=== PATIENT | female | born 1990 | race Caucasian/White ===

== ENCOUNTER → 2016-07-10 | Outpatient (CLI) | payer MEDICAID ==
[~2016-07-10] MED LIST: CODE-54 PO; HYDR-3454 PO; PREN1TAB71 PO; SERT50TA9
--- OUTSIDE RECORDS SUMMARY | 2016-07-10 14:33 | XMS REPORT | Continuity of Care Document ---
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 12/20/2015 BETZY LOAIZA MD Ot L98.9 DISORDER OF THE SKIN AND SUBCUTANEOUS TI 12/24/2015 BETZY LOAIZA MD Ot 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 Visit Date/Time Discharge Status Pt. Type Provider Facility Loc./Unit Complaint [id number] 12/20/2015 08:37:00 2015 12:55:00 DIS Outpatient BETZY LOAIZA MD [facility] SKIN LESION BACK OF SCALP [id number] 12/17/2015 05:35:00 2015 09:42:00 DIS Outpatient BETZY LOAIZA MD [facility] PREOP [id number] 01/31/2014 18:48:00 2013 10:45:00 DIS Inpatient [id number] 09/27/2013 11:41:00 2013 23:59:59 CLS Outpatient [id number] 08/01/2013 09:44:00 2013 23:59:59 CLS Outpatient
== END ==
LOC: CARD 14:30
PROVIDERS: ATTEND Family Medicine
DX: R00.0 Tachycardia, unspecified (principal)
CPT/HCPCS: 93005

== ENCOUNTER 2016-08-22 01:28 | Emergency (ER) | payer MEDICAID ==
[~2016-08-22] VITALS: Ht 162.6 cm; Wt 81.6 kg
[~2016-08-22 01:28] MED LIST changes: -SERT50TA9
[2016-08-22] MEDS ORDERED: SERT50TA9 (01:40)
--- NOTE | 2016-08-22 02:53 | ED Cardiac General ---
History of Present Illness General Chief Complaint: Cardiac/General Problems Stated Complaint: HTN,CHEST FELT TIGHT,DIZZY,SOB Nursing Triage Note: c/o anxiety and chest palpitations Source: patient Exam Limitations: no limitations History of Present Illness Time seen by provider: 02:39 Initial Comments This 26-year-old young lady presents to the emergency room with complaints of palpitations. She was out drinking alcohol with friends this evening when she began to feel tightness in her chest radiating to her back along with palpitations and lightheadedness. She reports a friend checked a manual blood pressure at home and found her blood pressure to be 166/102. She reports her pulse was 126. She reports having some issues with palpitations and hypertension for the past 6 months. Episodes in the past have brief. She reports her symptoms tonight have been gradually improving and she feels fairly well right now. She denies any use of stimulants. She denies any tobacco or drug use. She is alert and oriented and does not appear intoxicated at this time. She reports being on amoxicillin for an ear infection which she started last night. She had some swelling and itching associated with the amoxicillin use. She took Benadryl which resolved the issue. Her antibiotic was changed to a different medication which she has not started. She also was recently started on Zoloft on . Allergies and Home Medications Allergies Coded Allergies: amoxicillin (Verified Allergy, Unknown, 08/22/16) Home Medications Sertraline HCl 50 Mg Tablet, #30 (Reported) Review of Systems Constitutional: no symptoms reported EENTM: No Symptoms Reported Respiratory: No Symptoms Reported Cardiovascular: See HPI Gastrointestinal: No Symptoms Reported Genitourinary: No Symptoms Reported Musculoskeletal: no symptoms reported Skin: see HPI Psychiatric/Neurological: No Symptoms Reported Endocrine: No Symptoms Reported Past Lvfmxxp-Sqdytc-Bmavrc Hx Patient Social History Alcohol Use: Occasionally Uses Recreational Drug Use: No Smoking Status: Never a Smoker Recent Foreign Travel: No Contact w/Someone Who Travel: No Recent Infectious Disease Expo: No Recent Hopitalizations: No Immunizations Up To Date Tetanus Booster (TDap): More than 5yrs PED Vaccines UTD: No Surgeries HX Surgeries: Yes (WISDOM TEETH - 2009, TONSILLECTOMY AT AGE 3, sebaceous cyst resection) Surgeries: Adenoidectomy, Tonsillectomy Respiratory Hx Respiratory Disorders: No Cardiovascular Hx Cardiac Disorders: Yes Cardiac Disorders: Hypertension, Palpitations Neurological Hx Neurological Disorders: No Reproductive System Hx Reproductive Disorders: No Sexually Transmitted Disease: No HIV/AIDS: No Female Reproductive Disorders: Denies Genitourinary Hx Genitourinary Disorders: No Gastrointestinal Hx Gastrointestinal Disorders: No Musculoskeletal Hx Musculoskeletal Disorders: No Endocrine Hx Endocrine Disorders: No HEENT HX ENT Disorders: Yes (GLASSES) Loss of Vision: Bilateral Hearing Impairment: Denies Cancer Hx Cancer: No Psychosocial Hx Psychiatric Problems: No Integumentary HX Skin/Integumentary Disorder: No Blood Transfusions Hx Blood Disorders: No Adverse Reaction to a Blood Tr: No (N/A) Family Medical History Significant Family History: Heart Disease, Diabetes, Hypertension Family Medial History: Diabetes mellitus GRANDMOTHER Hypertension 19 FATHER GRANDMOTHER Physical Exam Vital Signs Vital Sign - Last 12Hours 08/22/16 01:36 Temp 98.2 Pulse 101 Resp 18 B/P (MAP) 142/98 Pulse Ox 98 O2 Delivery Room Air Capillary Refill : Less Than 3 Seconds General Appearance: No Apparent Distress, WD/WN HEENT: PERRL/EOMI, Normal ENT Inspection, Pharynx Normal Neck: Normal Inspection Respiratory: Lungs Clear, Normal Breath Sounds, No Accessory Muscle Use, No Respiratory Distress Cardiovascular: Regular Rate, Rhythm, No Edema, No Murmur, Normal Peripheral Pulses Gastrointestinal: Non Tender, Soft Extremity: Normal Inspection, No Pedal Edema Neurologic/Psychiatric: Alert, Oriented x3, No Motor/Sensory Deficits, Normal Mood/Affect, c t tech II-XII Norm as Tested Skin: Normal Color, Warm/Dry Progress/Results/Core Measures Results/Orders My Orders Orders - LAURA MASTON MD Monitor-Rhythm Ecg Trace Only (08/22/16 02:50) Vital Signs/I&O Vital Sign - Last 12Hours 08/22/16 08/22/16 01:36 03:07 Temp 98.2 98.2 Pulse 101 94 Resp 18 18 B/P (MAP) 142/98 Pulse Ox 98 98 O2 Delivery Room Air Blood Pressure Mean: 113 Progress Note : Progress Note Patient had normal sinus rhythm on the monitor. Blood pressure was improving. Patient's symptoms were resolving without any treatment. She elects to forego workup and seek further evaluation as an outpatient. Departure Impression Impression: Primary Impression: Palpitations Additional Impression: Episode of hypertension Disposition: 01 HOME, SELF-CARE Condition: Improved Departure-Patient Inst. Decision time for Depature: 02:51 Referrals: LUIS DANIEL ANDERSON MD (PCP/Family) Primary Care Physician Patient Instructions: Palpitations (DC) Add. Discharge Instructions: Return to care promptly if symptoms return. Follow-up with Dr. Anderson on Wednesday. Discontinue use of Zoloft and avoid alcohol until discussed at your follow-up appointment. All discharge instructions reviewed with patient and/or family. Voiced understanding. Copy Copies To 1: LUIS DANIEL ANDERSON MD, JOSHUA T MD Aug 22, 2016 02:53
[2016-08-22 03:07] VITALS: BP 126/91
--- OUTSIDE RECORDS SUMMARY | 2016-09-15 09:09 | XMS REPORT | Continuity of Care Document ---
Author Author [facility] Organization [facility] Address Unknown Phone Unavailable Allergies Active Description Code Type Severity Reaction Onset Reported/Identified Relationship to Patient Clinical Status Yes No Known Drug Allergies [id number] Drug Allergy Unknown N/ A 12/17/2015 Yes amoxicillin [id number] Drug Allergy Unknown N/A 08/22/2016 Medications Problems Date Dx Coded Attending Type Code Diagnosis Diagnosed By 02/02/2014 LUIS DANIEL WHITEHEAD MD, Ot 650 NORMAL DELIVERY 02/02/2014 LUIS DANIEL WHITEHEAD MD, Ot V06.1 [id number], COMBINED [ 02/02/2014 LUIS DANIEL WHITEHEAD MD, Ot V06.4 [id number] 02/02/2014 LUIS DANIEL WHITEHEAD MD Ot V27.0 DELIVER-SINGLE LIVEBORN 12/17/2015 BETZY LOAIZA MD Ot L98.9 DISORDER OF THE SKIN AND SUBCUTANEOUS TI 12/17/2015 BETZY LOAIZA MD Ot Z01.818 ENCOUNTER FOR OTHER PREPROCEDURAL EXAMIN 12/18/2015 BETZY LOAIZA MD, Ot L98.9 DISORDER OF THE SKIN AND [...] BENIGN NEOPLASM OF SKIN OF SCALP A 07/10/2016 LUIS DANIEL WHITEHEAD MD Ot V28.81 ENCOUNTER FOR ANATOMIC SURVEY 07/10/2016 LUIS DANIEL WHITEHEAD MD Ot V28.81 ENCOUNTER FOR ANATOMIC SURVEY 07/13/2016 LUIS DANIEL WHITEHEAD MD Ot R00.0 TACHYCARDIA, UNSPECIFIED 07/16/2016 LUIS DANIEL WHITEHEAD MD Ot R00.0 TACHYCARDIA, UNSPECIFIED 07/22/2016 LUIS DANIEL WHITEHEAD MD Ot R00.0 TACHYCARDIA, UNSPECIFIED 08/24/2016 LAURA MATSON MD Ot R00.2 PALPITATIONS 08/24/2016 LAURA MATSON MD Ot R03.0 ELEVATED BLOOD-PRESSURE READING, W/O FELICIA 08/28/2016 LAURA MATSON MD Ot R00.2 PALPITATIONS 08/28/2016 LAURA MATSON MD Ot R03.0 ELEVATED BLOOD-PRESSURE READING, W/O FELICIA Procedures Code Description Performed By Performed On 96.49 OTHER INSTILLATION 01/31/2014 73.6 EPISIOTOMY 2013 Results Test Result Range Urine beta human chorionic gonadotropin (hCG) measurement - 12/20/15 08:45 Urine beta human chorionic gonadotropin (hCG) measurement NEGATIVE NEGATIVE Methicillin resistant Staphylococcus aureus (MRSA) screening culture - 08:50 Methicillin resistant Staphylococcus aureus (MRSA) screening culture NEG NRG Encounters ACCT No. Visit Date/Time Discharge Status Pt. Type Provider Facility Loc./Unit Complaint [id number] 08/22/2016 01:31:00 2016 03:06:00 DIS Outpatient LAURA MATSON MD [facility] ER HTN,CHEST FELT TIGHT,DIZZY, SOB [id number] 12/20/2015 08:37:00 2015 12:55:00 DIS Outpatient BETZY LOAIZA MD [facility] SKIN LESION BACK OF SCALP [id number] 12/17/2015 05:35:00 2015 09:42:00 DIS Outpatient BETZY LOAIZA MD [facility] PREOP LESION BACK OF SCALP [id number] 01/31/2014 18:48:00 2013 10:45:00 DIS Inpatient LUIS DANIEL WHITEHEAD MD [facility] LDRP INDUCTION [id number] 09/27/2013 11:41:00 2013 23:59:59 CLS Outpatient LUIS DANIEL WHITEHEAD MD [facility] RAD COMPLETE SURVEY [id number] 08/01/2013 09:44:00 2013 23:59:59 CLS Outpatient LUIS DANIEL WHITEHEAD MD [facility] RAD DATING [id number] 07/10/2016 14:30:00 ACT Outpatient LUIS DANIEL WHITEHEAD MD [facility] CARD TACHYCARDIA
--- OUTSIDE RECORDS SUMMARY | 2016-09-15 09:09 | XMS REPORT ---
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 Info Not Available Non Drug Allergy Problems Problem Type Condition Code Onset Dates Condition Status Assessment Encounter for dental examination Z01.20 Active Problem Encounter for dental examination Z01.20 Active Medications No Known Medications Procedures Procedure Coding System Code Date INTRAORL-PERIAPICAL 1 FILM 57183 CPT-4 D0220 Mar 07, 2015 INTRAORL-PERIAPICAL EA ADD FILM CPT-4 D0230 Mar 07, 2015 COMP ORAL EVALUATION - NEW/EST PT CPT-4 D0150 Mar 07, 2015 PANORAMIC FILM SEE ALSO CODE 32928 CPT-4 D0330 Mar 07, 2015 INTRAORL-PERIAPICAL EA ADD FILM CPT-4 D0230 Mar 07, 2015 TOPICAL FLUORIDE VARNISH CPT-4 D1206 Mar 07, 2015 PROPHYLAXIS - ADULT CPT-4 D1110 Mar 07, 2015 Vital Signs Date/Time: Mar 07, 2015 Blood Pressure Diastolic 91 mmHg Blood Pressure Systolic 125 mmHg Cardiac Monitoring Heart Rate 93 bpm Results No Known Results Summary Purpose [employer] Submission
== END 2016-08-22 03:06 | disposition home or self-care (01) ==
LOC: EDUNIT# 01:28 → ER 01:31
DX: R00.2 Palpitations (principal); R03.0 Elevated blood-pressure reading, without diagnosis of hypertension
CPT/HCPCS: 99283

== ENCOUNTER → 2018-02-17 | Outpatient (CLI) | payer OTHER, MEDICAID ==
[~2018-02-17] MED LIST changes: +SERT50TA9
--- NOTE | 2018-02-17 11:59 | Diagnostic Imaging Report ---
INDICATION: survey. TECHNIQUE: Multiple real-time grayscale images were obtained over the gravid uterus. COMPARISON: There are no prior studies available for comparison. FINDINGS: There is a single live fetus in breech presentation. heart motion was noted and a rate of 149 BPM was recorded. There were no abnormalities identified but the spine was not well visualized due to lie. A short-term (4-6 week) followup ultrasound exam would be recommended for further study. The growth parameters are fairly uniform. The placenta is anterior and there is no previa. The amniotic fluid volume is within normal limits. IMPRESSION: 1. There is a single live fetus at approximately 18 weeks 2 days gestation +/-1.5 weeks. The EDC is July 19, 2018. 2. There were no abnormalities identified but the spine was not well visualized. Recommendations as above. 3. The growth parameters are fairly uniform. Biometrical measurements are as follows: Biparietal 4.1 cm, age 18 weeks 4 days. Head circumference 14.9 cm, age 18 weeks 0 days. Abdominal circumference 12.7 cm, age 18 weeks 2 days. Femur length 2.7 cm, age 18 weeks 1 days. Sonographic estimate age: 18 weeks 2 days. Sonographic estimated date of delivery: 07/19/17. Estimated Weight: 227 gm (+/- 33 gm). LMP percentile: 38%. heart rate: 149 beats per minute. number: 1 of 1. Dictated by: Dictated on workstation # [id number]
== END ==
LOC: RAD 09:30
PROVIDERS: ATTEND Family Medicine
DX: Z36.89 Encounter for other specified antenatal screening (principal); Z3A.18 18 weeks gestation of pregnancy
CPT/HCPCS: 76805